=== PATIENT | male | born 1975 | race Caucasian/White ===

== ENCOUNTER 2018-11-02 07:05 | Day surgery (SDC) | payer OTHER ==
[~2018-11-02] VITALS: Ht 177.8 cm; Wt 95.3 kg
[2018-11-02] MEDS ORDERED: MEPERIDINE HCL/PF 100 MG/ML AMP ONE (07:25)
[2018-11-02] MEDS ORDERED: GLYCOPYRROLATE 0.2 MG/ML VIAL ONE (07:26)
[2018-11-02] MEDS ORDERED: SIMETHICONE 40 MG/0.6 ML ML ONE (07:40)
[2018-11-02] MEDS: MIDAZOLAM HCL 5 MG/5 ML VIAL ONE ×3 (07:45→07:51)
[2018-11-02 09:07] VITALS: BP_SYST 102
== END 2018-11-02 08:40 | disposition home or self-care (01) ==
LOC: SMU 07:05 → SDS 07:05
PROVIDERS: ATTEND Colon & Rectal Surgery
DX: Z12.11 Encounter for screening for malignant neoplasm of colon (principal); K57.30 Diverticulosis of large intestine without perforation or abscess without bleeding; N52.9 Male erectile dysfunction, unspecified; Z98.84 Bariatric surgery status; I10 Essential (primary) hypertension; G47.33 Obstructive sleep apnea (adult) (pediatric); Z80.0 Family history of malignant neoplasm of digestive organs; Z68.31 Body mass index [BMI] 31.0-31.9, adult; Z79.899 Other long term (current) drug therapy; Z87.891 Personal history of nicotine dependence; Z98.890 Other specified postprocedural states; E03.9 Hypothyroidism, unspecified
CPT/HCPCS: 45378; J2175; J2250; J3490; J7030